=== PATIENT | male | born 1995 | race Caucasian/White ===

== ENCOUNTER → 2025-03-06 | Outpatient (CLI) | payer BC, SELFPAY ==
[2025-03-06 11:01] LABS: Basophils # (Auto) 0.1 Thou/mm3 (0.0-0.2); Basophils % (Auto) 1 % (0-2.5); Eosinophils % (Auto) 0 % (0-10); Hematocrit 28.9 % (41.0-53.0); Hemoglobin 8.9 g/dL (13.5-16.0); Immature Granulocytes % (Auto) 1 % (0-0); Immature Granulocytes Auto 0.03 Thou/mm3 (0.00-0.00); Lymphocytes % (Auto) 17 % (10-50); Mean Corpuscular HGB Conc 30.8 g/dl (31.0-37.0); Mean Corpuscular Hemoglobin 30.4 pg (25.0-35.0); Mean Corpuscular Volume 99 fL (80-100); Monocytes # (Auto) 0.7 Thou/mm3 (0.0-0.8); Monocytes % (Auto) 11 % (0-12); Neutrophils # (Auto) 4.1 Thou/mm3 (1.8-7.7); Neutrophils % (Auto) 70 % (37-80); Nucleated Red Blood Cell % 0 /100 WBC (0); Platelet Count 563 Thou/mm3 (140-440); RDW Standard Deviation 64.5 fL (35.1-43.9); Red Blood Count 2.93 Miln/mm3 (4.50-5.90); White Blood Count 5.9 Thou/mm3 (3.8-10.6)
== END | disposition home or self-care (01) ==
LOC: COPL 09:19
PROVIDERS: PCP Family Medicine; Referring Provider Internal Medicine Hematology & Oncology; Visit Provider Internal Medicine Hematology & Oncology
DX: C62.12 Malignant neoplasm of descended left testis (principal); C62.11 Malignant neoplasm of descended right testis; E29.1 Testicular hypofunction
CPT/HCPCS: 36415; 85025

== ENCOUNTER → 2025-08-27 | Outpatient (CLI) | payer BC, SELFPAY ==
[2025-08-27 11:25] LABS: Basophils # (Auto) 0.0 Thou/mm3 (0.0-0.2); Basophils % (Auto) 1 % (0-2.5); Eosinophils # (Auto) 0.1 Thou/mm3 (0.0-0.5); Eosinophils % (Auto) 1 % (0-10); Hematocrit 37.7 % (41.0-53.0); Hemoglobin 12.9 g/dL (13.5-16.0); Immature Granulocytes Auto 0.03 Thou/mm3 (0.00-0.00); Lymphocytes # (Auto) 2.1 Thou/mm3 (1.0-4.8); Lymphocytes % (Auto) 32 % (10-50); Mean Corpuscular HGB Conc 34.2 g/dl (31.0-37.0); Mean Corpuscular Hemoglobin 29.0 pg (25.0-35.0); Mean Corpuscular Volume 85 fL (80-100); Monocytes # (Auto) 0.4 Thou/mm3 (0.0-0.8); Monocytes % (Auto) 6 % (0-12); Neutrophils # (Auto) 3.8 Thou/mm3 (1.8-7.7); Neutrophils % (Auto) 60 % (37-80); Nucleated Red Blood Cell # 0.00 Thou/mm3 (0.00-0.00); Nucleated Red Blood Cell % 0 /100 WBC (0); Platelet Count 313 Thou/mm3 (140-440); RDW Standard Deviation 38.3 fL (35.1-43.9); Red Blood Count 4.45 Miln/mm3 (4.50-5.90); White Blood Count 6.4 Thou/mm3 (3.8-10.6)
[2025-08-27 11:49] LABS: INR 1.0 (0.9-1.3); Partial Thromboplastin Time 28.0 Seconds (22.0-36.0); Prothrombin Time 10.7 Seconds (9.0-12.2)
[2025-08-27 12:41] LABS: Alanine Aminotransferase 36 U/L (10-49); Albumin, Serum 4.5 gm/dL (3.5-5.0); Albumin/Globulin Ratio 1.5 (1.2-2.2); Alkaline Phosphatase 104 U/L (46-116); Anion Gap 11 (7-16); Aspartate Amino Transferase 25 U/L (0-34); BUN/Creatinine Ratio 11 Ratio (12-20); Beta HCG,Quantitative 2 mIU/mL; Bilirubin,Total 0.2 mg/dL (0.3-1.2); Blood Urea Nitrogen 13 mg/dL (9-23); Calcium 9.8 mg/dL (8.3-10.6); Calcium (Corrected) 9.8 mg/dL (8.5-10.1); Carbon Dioxide 28.6 mMol/L (20.0-31.0); Chloride 99 mMol/L (98-107); Creatinine (Component) 1.2 mg/dL (0.6-1.3); Globulin 3.1 gm/dL (2.3-3.5); Glucose 111 mg/dL (74-106); Osmolality,Calculated 278 (275-295); Potassium 3.5 mMol/L (3.4-5.1); Sodium 139 mMol/L (136-145); Total Protein 7.6 gm/dL (5.7-8.2); eGFR > 60 See Note
[2025-08-27 21:32] LABS: AFP Non-Pregnant 2.40 ng/mL (<8.10)
== END | disposition home or self-care (01) ==
PROVIDERS: PCP Family Medicine; Referring Provider Internal Medicine Hematology & Oncology; Visit Provider Internal Medicine Hematology & Oncology
DX: C62.11 Malignant neoplasm of descended right testis (principal); C62.12 Malignant neoplasm of descended left testis; D68.9 Coagulation defect, unspecified; I26.99 Other pulmonary embolism without acute cor pulmonale
CPT/HCPCS: 36415; 80053; 82105; 84702; 85025; 85610; 85730